=== PATIENT | female | born 1935 | race African-American/Black ===

== ENCOUNTER 2019-05-09 05:25 | Observation (INO) ==
[2019-05-09] MEDS ORDERED: LEVOFLOXACIN INJ 500 MG in PREMIX 1 EACH IV STA (06:29)
[2019-05-09] MEDS ORDERED: ALBUTEROL/IPRATROPIUM 3 ML NEB RESP TX STA (06:29)
[2019-05-09] MEDS ORDERED: methylPREDNISolone SOD SUC 125 MG/2 ML VIAL IV STA (06:29)
[2019-05-09 06:39] LABS: Basophils # 0.1 10*3/uL (0.0-0.2); Basophils % 1.1 % (0.0-0.8); Eosinophils # 0.9 10*3/uL (0.0-0.87); Eosinophils % 11.5 % (0.00-10.9); Hematocrit 41.7 VOL% (35.7-47.0); Hemoglobin 12.6 GM/DL (12.0-16.0); Immature Granulocytes % 0.1 %; Immature Granulocytes Absolute 0.01 #; Lymphocytes # 2.5 10*3/uL (1.4-4.0); Lymphocytes % 31.2 % (21.3-54.2); Mean Corpuscular HGB Conc 30.2 GM/DL (32-36); Mean Platelet Volume 11.2 FL (9.6-12.0); Neutrophils % 45.1 % (38.7-73.9); Platelet Count 268 T/CUMM (130-400); Red Blood Count 6.04 MC/CUMM (3.8-5.5); Red Cell Distribution Width 17.2 % (9.3-17.3); White Blood Count 8.1 T/CUMM (4-12)
[2019-05-09 06:53] LABS: Alanine Aminotransferase 19 U/L (13-56); Alkaline Phosphatase 116 U/L (45-117); Aspartate Amino Transferase 23 U/L (0-37); Bilirubin,Total < 0.39 MG/DL (0.2-1.0); Blood Urea Nitrogen 8 MG/DL (7-18); Calcium 9.5 MG/DL (8.5-10.1); Estimated Glom Filtration Rate 92 ML/MIN; Glucose 143 MG/DL (74-106); Osmolality,Calculated 280.3 MOS/KG (273-304); Total Protein 7.8 G/DL (6.4-8.3)
[2019-05-09 07:05] LABS: Band Neutrophils 2 % (0-10); Eosinophils 8 % (0-10); Lymphocytes 35 % (20-55); Segmented Neutrophils 42 % (50-85); Total Cells Counted 100
[2019-05-09 07:07] LABS: Hypochromasia 1+; Platelet Estimate Normal
[2019-05-09 07:08] LABS: Ovalocytes 1+
[2019-05-09] MEDS ORDERED: ONDANSETRON 4 MG/2 ML VIAL IV PRN (08:44)
[2019-05-09] MEDS ORDERED: BISACODYL 5 MG TABLET PO PRN (08:44)
[2019-05-09] MEDS ORDERED: LACTULOSE 20 GM/30 ML UDCUP PO PRN (08:44)
[2019-05-09] MEDS ORDERED: guaiFENesin/DM ER 600-30 MG TABLET PO PRN (08:44)
[2019-05-09] MEDS ORDERED: ACETAMINOPHEN 325 MG TABLET PO PRN (08:44)
[2019-05-09] MEDS ORDERED: MAGNESIUM SULF RIDER 4 GM in PREMIX 1 EACH IV PRN (08:49)
[2019-05-09] MEDS ORDERED: MAGNESIUM SULF RIDER 2 GM in PREMIX 1 EACH IV PRN (08:49)
[2019-05-09] MEDS ORDERED: LORATADINE 10 MG TABLET PO PRN (08:50)
[2019-05-09] MEDS ORDERED: ALBUTEROL/IPRATROPIUM 3 ML NEB RESP TX PRN (08:59)
[2019-05-09] MEDS ORDERED: SODIUM CHLORIDE 0.9% 1,000 ML IV SCH (09:00)
[2019-05-09] MEDS: POTASSIUM CHLORIDE 20 MEQ TABLET PO PRN ×3 (10:07→17:05)
[2019-05-09] MEDS: MONTELUKAST 10 MG TABLET PO SCH (10:07)
[2019-05-09] MEDS: amLODIPine 10 MG TABLET PO SCH (10:07)
[2019-05-09] MEDS: DOCUSATE SODIUM 100 MG CAPSULE PO SCH ×2 (10:08→20:16)
[2019-05-09] MEDS: PANTOPRAZOLE 40 MG TABLET PO SCH (10:08)
[2019-05-09] MEDS: FLUTICASONE/SALMETEROL 250-50 DISKUS 14 DOSE INH SCH (10:21)
[2019-05-09] MEDS: ENOXAPARIN 40 MG/0.4 ML SYRINGE SUBCUT SCH (10:21)
[2019-05-09] MEDS: methylPREDNISolone SOD SUC 40 MG/1 ML VIAL IV SCH ×2 (10:21→17:05)
[2019-05-09] MEDS: ALBUTEROL/IPRATROPIUM 3 ML NEB RESP TX SCH ×4 (11:14→23:49)
[2019-05-09] MEDS ORDERED: ALBUTEROL 2.5 MG/3 ML NEB RESP TX PRN (12:20)
[2019-05-09] MEDS: THEOPHYLLINE ER 300 MG TABLET PO SCH (17:05)
[2019-05-09] MEDS: SIMVASTATIN 20 MG TABLET PO SCH (20:15)
[2019-05-10] MEDS: methylPREDNISolone SOD SUC 40 MG/1 ML VIAL IV SCH ×2 (01:27→09:25)
[2019-05-10] MEDS: ALBUTEROL/IPRATROPIUM 3 ML NEB RESP TX SCH ×3 (02:11→12:29)
[2019-05-10 05:30] LABS: Calcium 9.3 MG/DL (8.5-10.1); Free T4 (Free Thyroxine) 1.37 NG/DL (0.76-1.46); Osmolality,Calculated 283.3 MOS/KG (273-304); Thyroid Stimulating Hormone < 0.005 uIU/ml (0.358-3.74)
[2019-05-10 05:34] LABS: Calcium 9.4 MG/DL (8.5-10.1); Osmolality,Calculated 283.3 MOS/KG (273-304); Risk Ratio 1.51; VLDL CHOLESTEROL 6.6 MG/DL
[2019-05-10] MEDS: amLODIPine 10 MG TABLET PO SCH (09:24)
[2019-05-10] MEDS: AZITHROMYCIN 250 MG TABLET PO SCH (09:25)
[2019-05-10] MEDS: MONTELUKAST 10 MG TABLET PO SCH (09:25)
[2019-05-10] MEDS: PANTOPRAZOLE 40 MG TABLET PO SCH (09:25)
[2019-05-10] MEDS: DOCUSATE SODIUM 100 MG CAPSULE PO SCH ×2 (09:25→21:26)
[2019-05-10] MEDS: THEOPHYLLINE ER 300 MG TABLET PO SCH ×2 (09:25→17:54)
[2019-05-10] MEDS: ENOXAPARIN 40 MG/0.4 ML SYRINGE SUBCUT SCH (09:26)
[2019-05-10] MEDS: LEVALBUTEROL 0.31 MG/3 ML NEB RESP TX SCH ×2 (14:46→19:32)
[2019-05-10] MEDS ORDERED: METOPROLOL TARTRATE 5 MG/5 ML VIAL IV ONE (17:13)
[2019-05-10] MEDS: SIMVASTATIN 20 MG TABLET PO SCH (21:26)
[2019-05-10] MEDS: methylPREDNISolone SOD SUC 125 MG/2 ML VIAL IV SCH (21:27)
[2019-05-11] MEDS: LEVALBUTEROL 0.31 MG/3 ML NEB RESP TX SCH ×5 (00:35→14:32)
[2019-05-11] MEDS: ENOXAPARIN 40 MG/0.4 ML SYRINGE SUBCUT SCH ×2 (08:44→10:24)
[2019-05-11] MEDS: amLODIPine 10 MG TABLET PO SCH (08:44)
[2019-05-11] MEDS: THEOPHYLLINE ER 300 MG TABLET PO SCH (08:44)
[2019-05-11] MEDS: DOCUSATE SODIUM 100 MG CAPSULE PO SCH (08:44)
[2019-05-11] MEDS: AZITHROMYCIN 250 MG TABLET PO SCH (08:44)
[2019-05-11] MEDS: PANTOPRAZOLE 40 MG TABLET PO SCH (08:44)
[2019-05-11] MEDS: MONTELUKAST 10 MG TABLET PO SCH (08:44)
[2019-05-11] MEDS: methylPREDNISolone SOD SUC 125 MG/2 ML VIAL IV SCH (08:45)
[2019-05-11] MEDS: FLUTICASONE/SALMETEROL 250-50 DISKUS 14 DOSE INH SCH (08:47)
[2019-05-11] MEDS ORDERED: METOPROLOL TARTRATE 25 MG TABLET PO SCH (09:00)
[2019-05-11 12:21] VITALS: BP 119/75
== END 2019-05-11 15:00 | disposition home or self-care (01) ==
LOC: EDUNIT# → EDBD → N.EDINP 05:25 → N.ED 05:25 → N.5E 09:33
PROVIDERS: ADMIT Internal Medicine; ATTEND Internal Medicine